=== PATIENT | female | born 1995 | race African-American/Black ===

== ENCOUNTER 2022-11-04 18:00 | Inpatient (IN) | payer OTHER ==
[2022-11-04] MEDS ORDERED: Bupivacaine 0.25% HCL 30 ML VIAL ONE (20:12)
[2022-11-04 22:13] VITALS: BMI 36.6
[2022-11-04] MEDS ORDERED: Promethazine HCl 25 MG/ML VIAL IM PRN (22:54)
[2022-11-04] MEDS ORDERED: Misoprostol 200 MCG TAB PR PRN (22:54)
[2022-11-04] MEDS ORDERED: hydrALAZINE 20 MG/ML VIAL SLOW IVP PRN (22:54)
[2022-11-04] MEDS ORDERED: Carboprost 250 MCG/ML AMP IM PRN (22:54)
[2022-11-04] MEDS ORDERED: Ondansetron PF 4 MG/2 ML Vial IVP PRN (22:54)
[2022-11-04] MEDS ORDERED: Lidocaine 1% (PF) 30 ML VIAL SC PRN (22:54)
[2022-11-04] MEDS ORDERED: Methylergonovine 0.2 MG/ML VIAL IM PRN (22:54)
[2022-11-04] MEDS ORDERED: Acetaminophen 500 MG TAB PO PRN (22:54)
[2022-11-04] MEDS ORDERED: Ibuprofen 800 MG TAB PO PRN (22:54)
[2022-11-04] MEDS ORDERED: NS w/ Oxytocin 30 units 500 ML IV SCH ×3 (23:00)
[2022-11-04] MEDS ORDERED: Penicillin G Potassium 5 MILL.UNITS in Sodium Chloride 0.9% 100 ML IVPB SCH (23:00)
[2022-11-04 23:26] LABS: Hematocrit 31.8 % (34.9-44.5); Mean Corpuscular HGB CONC 34.6 g/dL (32.0-36.0); Mean Corpuscular Hemoglobin 31.2 pg (27.0-33.0); Mean Corpuscular Volume 90.1 fl (81.6-98.3); Mean Platelet Volume 13.4 fl (7.4-10.4); Platelet Count 119 10x3/uL (150-450); RBC Distribution Width 14.4 % (11.5-14.5); Red Blood Cell (RBC) Count 3.53 10x6/uL (3.90-5.03); White Blood Cell (WBC) Count 9.5 10x3/uL (3.5-10.5)
[2022-11-04 23:42] LABS: HBSAg Index 0.35 S/CO (0-0.99); Hep B Surf Ag - L&D Non-Reactive S/CO (NonReactive); Syphilis Antibody Nonreactive (Nonreactive); Syphilis Antibody Index 0.04 S/CO (<1.00 Non-Reactive)
[2022-11-05] MEDS ORDERED: Lactated Ringer's 1,000 ML IV SCH (00:15)
[2022-11-05] MEDS: Misoprostol 100 MCG TAB VAG SCH ×3 (00:20→16:40)
[2022-11-05] MEDS: Lactated Ringer's 1,000 ML IV SCH ×2 (02:55→08:03)
[2022-11-05] MEDS: Penicillin G 2.5 MILL.units 2.5 MILL.UNITS in Premix Bag 1 BAG IVPB SCH ×4 (02:55→16:40)
[2022-11-05] MEDS ORDERED: fentaNYL/Ropivacaine Epidural 100 ML ONE (07:59)
[2022-11-05] MEDS ORDERED: Ondansetron PF 4 MG/2 ML Vial IVP PRN (08:48)
[2022-11-05] MEDS ORDERED: ePHEDrine Sulfate 50 MG/10 ML VIAL SLOW IVP PRN (08:48)
[2022-11-05] MEDS ORDERED: Naloxone HCl 0.4 mg/ml Vial IVP PRN ×2 (08:48)
[2022-11-05] MEDS ORDERED: Promethazine HCl 25 MG/ML VIAL IM PRN (08:48)
[2022-11-05] MEDS ORDERED: diphenhydrAMINE 50 MG/ML VIAL IVP PRN (08:48)
[2022-11-05] MEDS ORDERED: Lactated Ringer's 500 ML IV PRN (08:48)
[2022-11-05] MEDS ORDERED: Moisturizing Cream (Eucerin) 113 GM JAR TOP PRN (08:48)
[2022-11-05] MEDS ORDERED: Acetaminophen 325 MG TAB PO PRN (08:48)
[2022-11-05] MEDS ORDERED: Communication Order-Pharmacy FS SCH (09:00)
[2022-11-05] MEDS ORDERED: fentaNYL 2 mcg/Ropivacaine 0.2% Epidural 100 ML CADD EPIDURAL SCH (09:00)
[2022-11-05] MEDS ORDERED: Boostrix 0.5 ML (Tdap) VIAL (>/=7 yrs of age) IM ONE (15:30)
[2022-11-05] MEDS ORDERED: Methylergonovine 0.2 MG/ML VIAL IM PRN (15:30)
[2022-11-05] MEDS ORDERED: Preparation H Ointment 28 GM TUBE PR PRN (15:30)
[2022-11-05] MEDS ORDERED: Lanolin Ointment 7 GM TUBE TOP PRN (15:30)
[2022-11-05] MEDS ORDERED: Milk Of Magnesia 30 ML UDCUP PO PRN (15:30)
[2022-11-05] MEDS ORDERED: Bisacodyl 10 MG SUPP PR PRN (15:30)
[2022-11-05] MEDS ORDERED: Benzocaine-Menthol 82.5 ML CAN TOP PRN (15:30)
[2022-11-05] MEDS ORDERED: diphenhydrAMINE 25 MG CAP PO PRN (15:30)
[2022-11-05] MEDS: Ferrous Sulfate 325 MG TAB PO SCH (16:38)
[2022-11-05] MEDS ORDERED: Ibuprofen 800 MG TAB PO SCH (18:30)
[2022-11-05] MEDS: Docusate 100 MG CAP PO SCH (19:49)
[2022-11-05] MEDS: Acetaminophen 500 MG TAB PO SCH (19:49)
[2022-11-06 04:04] LABS: #Eosinphils 0.1 10x3/uL (0.0-0.5); #Monocytes 0.5 10x3/uL (0.0-1.1); #Neutrophils 5.5 10x3/uL (1.5-8.4); %Basophils 0.2 % (0.0-2.0); %Eosinophils 0.8 % (0.0-6.0); %Lymphocytes 29.3 % (18.0-47.0); %Monocytes 6.2 % (0.0-10.0); %Neutrophils 63.3 % (40.0-75.0); Hemoglobin 9.8 g/dL (12.0-15.5); Mean Corpuscular HGB CONC 33.8 g/dL (32.0-36.0); Mean Corpuscular Hemoglobin 31.1 pg (27.0-33.0); Mean Corpuscular Volume 92.1 fl (81.6-98.3); Mean Platelet Volume 13.3 fl (7.4-10.4); Platelet Count 103 10x3/uL (150-450); RBC Distribution Width 14.4 % (11.5-14.5); Red Blood Cell (RBC) Count 3.15 10x6/uL (3.90-5.03); White Blood Cell (WBC) Count 8.7 10x3/uL (3.5-10.5)
[2022-11-06] MEDS: Acetaminophen 500 MG TAB PO SCH ×4 (04:42→20:59)
[2022-11-06] MEDS: Ibuprofen 800 MG TAB PO SCH ×3 (04:42→21:00)
[2022-11-06] MEDS ORDERED: Ibuprofen 800 MG TAB PO SCH (08:00)
[2022-11-06] MEDS: Prenatal Vitamin 1 TAB PO SCH (08:26)
[2022-11-06] MEDS: Ferrous Sulfate 325 MG TAB PO SCH ×2 (08:26→16:32)
[2022-11-06] MEDS: Docusate 100 MG CAP PO SCH ×2 (08:26→21:00)
[2022-11-07] MEDS: Acetaminophen 500 MG TAB PO SCH ×3 (04:47→13:51)
[2022-11-07] MEDS: Ibuprofen 800 MG TAB PO SCH ×2 (04:47→14:30)
[2022-11-07 07:47] VITALS: BP 113/68; TEMP 98.1
[2022-11-07] MEDS: Docusate 100 MG CAP PO SCH (09:34)
[2022-11-07] MEDS: Prenatal Vitamin 1 TAB PO SCH (09:34)
[2022-11-07] MEDS: Ferrous Sulfate 325 MG TAB PO SCH (09:34)
== END 2022-11-07 18:05 | disposition home or self-care (01) | DRG 807 ==
LOC: CSHLD 21:50 → CSHPP 11-05 15:03
PROVIDERS: ADMIT Obstetrics & Gynecology; ATTEND Obstetrics & Gynecology
PROC: 10E0XZZ Delivery of Products of Conception, External Approach (ICD-10-PCS; principal; 2022-11-05)
PROC: 10907ZC Drainage of Amniotic Fluid, Therapeutic from Products of Conception, Via Natural or Artificial Opening (ICD-10-PCS; 2022-11-05)
PROC: 3E0P7VZ Introduction of Hormone into Female Reproductive, Via Natural or Artificial Opening (ICD-10-PCS; 2022-11-05)
DX: O99.824 Streptococcus B carrier state complicating childbirth (principal); Z37.0 Single live birth; O99.12 Other diseases of the blood and blood-forming organs and certain disorders involving the immune mechanism complicating childbirth; Z3A.39 39 weeks gestation of pregnancy; O90.81 Anemia of the puerperium; D50.0 Iron deficiency anemia secondary to blood loss (chronic); D69.6 Thrombocytopenia, unspecified
CPT/HCPCS: 36415; 51702; 85025; 85027; 86780; 86850; 86900; 86901; 87340; J2540; J2590; J3490; J7120; S0020